=== PATIENT | female | born 2005 | race African-American/Black ===

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

== ENCOUNTER 2023-01-26 18:50 | Emergency (ER) | payer OTHER ==
[2023-01-26 19:06] VITALS: BP 101/66; PULSE 65; RESP 20; TEMP 98.6; BMI 26.4
== END 2023-01-26 19:16 | disposition home or self-care (01) ==
LOC: FER 18:50
DX: Z04.1 Encounter for examination and observation following transport accident (principal)
CPT/HCPCS: 99282-25